=== PATIENT | female | born 1985 | race Caucasian/White ===

== ENCOUNTER 2017-02-13 20:35 | Emergency (ER) | payer OTHER ==
[2017-02-13] MEDS ORDERED: BENZONATATE 100 MG CAP PO STA (21:24)
[2017-02-13] MEDS ORDERED: IPRATROPIUM-ALBUTEROL 3 ML NEB INHALATION STA (21:24)
--- NOTE | 2017-02-13 21:32 | ED ---
URI HPI - General Chief Complaint: Upper Respiratory Infection Stated Complaint: URI Time Seen by Provider: 02/13/17 21:18 Source: patient, RN notes reviewed Mode of arrival: ambulatory Limitations: no limitations - History of Present Illness Initial Comments: 31-year-old female presents to the emergency department with a chief complaint of cough. Patient states that she was seen on Thursday for upper respiratory infection she was diagnosed with a bilateral ear infection and sent home on antibiotics and steroids. Patient states she continues to have this cough. Patient states that she continues to have sneezing she continues to have creams not. Patient states she's been sick for about 2 weeks now and she does not feel like she is getting any better. Patient denies any significant health history. Patient states that her cough seems to be the worst part. Patient states she does not smoke. Patient states she was concerned due to her continued symptoms so she thought that she should be evaluated.Patient denies any recent fever, chills, shortness of breath, chest pain, back pain, abdominal pain, nausea vomiting, numbness or tingling, dysuria or hematuria, constipation or diarrhea, headaches or visual changes, or any other current symptoms. - Related Data Previous Rx's Medication Instructions Recorded Albuterol Inhaler [Ventolin Hfa 1 - 2 puff INHALATION Q4-6H PRN #1 02/13/17 Inhaler] inhaler Benzonatate [Tessalon Perles] 100 mg PO TID #20 cap 02/13/17 Allergies Allergy/AdvReac Type Severity Reaction Status Date / Time No Known Allergies Allergy Verified 02/13/17 20:49 Review of Systems ROS Statement: Those systems with pertinent positive or pertinent negative responses have been documented in the HPI. ROS Other: All systems not noted in ROS Statement are negative. Past Medical History Past Medical History: No Reported History Additional Past Medical History / Comment(s): hx of kidney infection. History of Any Multi-Drug Resistant Organisms: None Reported Past Surgical History: Appendectomy Past Anesthesia/Blood Transfusion Reactions: Previous Problems w/ Anesthesia Additional Past Anesthesia/Blood Transfusion Reaction / Comment(s): extreme blood pressure drop with last epidural Past Psychological History: No Psychological Hx Reported Smoking Status: Never smoker Past Alcohol Use History: None Reported Past Drug Use History: None Reported - Past Family History Father Family Medical History: No Reported History General Exam - General Exam Comments Initial Comments: General exam: Alert, active, comfortable in no apparent distress Head: Normocephalic Eyes: Normal reaction of pupils, equal size, normal range of extraocular motion Ears: normal external ear canals, pink tympanic membranes with normal cone of light Nose: clear with pink turbinates Throat: no erythema or exudates with normal sized tonsils Neck: no masses, no nuchal rigidity Chest: no chest wall deformity Lungs: equal air entry with no crackles or wheeze CVS: S1 and S2 normal with no audible mumurs, regular rhythm Abdomen: no hepatosplenomegaly, normal bowel sounds, no guarding or rigidity Spine: no scoliosis or deformity Skin: no rashes Neurological: No focal deficits, tone is normal in all 4 extremities Limitations: no limitations Course Vital Signs 02/13/17 02/13/17 02/13/17 20:47 21:42 21:49 Temperature 97.2 F L Pulse Rate 81 80 80 Respiratory 20 Rate Blood Pressure 128/63 O2 Sat by Pulse 99 Oximetry Medical Decision Making - Medical Decision Making 31-year-old female presents to the emergency Department chief complaint of cough. Patient is currently on antibiotics and steroids. Patient examine does not show any acute findings. At this time chest x-ray is negative. This time patient did have some improvement with the breathing treatment and cough medication. This time we discussed we will start her onalbuterol inhaler for home as well as Tessalon Perles. We discussed close follow-up with her doctor. Patient stated that she understood the plan. All questions have been answered. She will be discharged. - Radiology Data Radiology results: report reviewed, image reviewed Disposition Clinical Impression: Upper respiratory infection Disposition: HOME SELF-CARE Condition: Stable Instructions: Upper Respiratory Infection (ED) Additional Instructions: Please use medication as discussed. Please follow up with family doctor if symptoms have not improved over the next two days. Please return to the emergency room if your symptoms increase or worsen or for any other concerns. Prescriptions: Albuterol Inhaler [Ventolin Hfa Inhaler] 1 - 2 puff INHALATION Q4-6H PRN #1 inhaler PRN Reason: Cough Benzonatate [Tessalon Perles] 100 mg PO TID #20 cap Referrals: Charo Santacruz DO [Primary Care Provider] - 1-2 days Time of Disposition: 21:53
--- NOTE | 2017-02-13 21:45 | XR ---
EXAMINATION TYPE: XR chest 2V DATE OF EXAM: 02/13/2017 9:32 PM COMPARISON: 02/05/2014. HISTORY: Cough and ear infection TECHNIQUE: Frontal and lateral views of the chest are obtained. FINDINGS: There is no focal air space opacity, pleural effusion, or pneumothorax seen. The cardiac silhouette size is within normal limits. The osseous structures are intact. IMPRESSION: No acute cardiopulmonary process.
[2017-02-13 22:25] VITALS: BP 118/57; PULSE 83; RESP 18; TEMP 97.1
== END 2017-02-13 22:25 | disposition home or self-care (01) ==
LOC: EC 20:35
DX: J06.9 Acute upper respiratory infection, unspecified (principal)
CPT/HCPCS: 71020; 94640; 99283

== ENCOUNTER → 2018-11-01 | Outpatient (CLI) | payer OTHER ==
--- NOTE | 2018-11-01 20:42 | ECHOF ---
Referral Reason:Palpitations R00.2 MEASUREMENTS -------- HEIGHT: 157.5 cm WEIGHT: 102.1 kg BP: RVIDd: 2.3 cm (< 3.3) IVSd: 0.8 cm (0.6 - 1.1) LVIDd: 4.3 cm (3.9 - 5.3) LVPWd: 1.1 cm (0.6 - 1.1) IVSs: 1.1 cm LVIDs: 2.7 cm LVPWs: 1.0 cm LA Diam: 3.3 cm (2.7 - 3.8) LAESV Index (A-L): 18.58 ml/m Ao Diam: 2.6 cm (2.0 - 3.7) AV Cusp: 1.8 cm (1.5 - 2.6) LA Diam: 3.1 cm (2.7 - 3.8) MV EXCURSION: 20.477 mm (> 18.000) MV EF SLOPE: 125 mm/s (70 - 150) EPSS: 0.4 cm MV E Sanjay: 0.62 m/s MV DecT: 272 ms MV A Sanjay: 0.52 m/s MV E/A Ratio: 1.20 RAP: 5.00 mmHg RVSP: 12.67 mmHg FINDINGS -------- Sinus rhythm. This was a technically good study. LV size, wall thickness and systolic function are normal, with an EF greater than 55%. The left alis tricular size is normal. The right ventricle is normal in size. The left atrial size is normal. The right atrial size is normal. There is mild aortic valve sclerosis. There is no evidence of aortic regurgitation. Mild mitral annular calcification present. Mild mitral regurgitation is present. Mild tricuspid regurgitation present. There is no evidence of pulmonary hypertension. The right v entricular systolic pressure, as measured by Doppler, is 12.67mmHg. There is no pulmonic regurgitation present. The aortic root size is normal. There is no pericardial effusion. CONCLUSIONS -------- 1. LV size, wall thickness and systolic function are normal, with an EF greater than 55%. 2. The left ventricular size is normal. 3. The right ventricle is normal in size. 4. The left atrial size is normal. 5. The right atrial size is normal. 6. There is mild aortic valve sclerosis. 7. Mild mitral annular calcification present. 8. Mild mitral regurgitation is present. 9. Mild tricuspid regurgitation present. 10. There is no evidence of pulmonary hypertension. 11. The right ventricular systolic pressure, as measured by Doppler, is 12.67mmHg. 12. There is no pulmonic regurgitation present. 13. The aortic root size is normal. 14. There is no pericardial effusion. WELL FLOW OPERATOR: Bianca Saldivar RDCS
--- NOTE | 2018-11-01 20:58 | EST ---
EXERCISE STRESS DATE OF SERVICE: 11/01/2018 AGE: 32 SEX: Female HT: 62" WT: 225 pounds PROTOCOL: Sidney STAGE: 3 DURATION OF EXERCISE: 8:15 minutes HEART RATE REST: 85 BLOOD PRESSURE REST: 112/70 MAXIMUM HEART RATE ACHIEVED: 169 MAXIMUM BLOOD PRESSURE: 132/57 85% MPHR: 162 100% MPHR: 190 METS: 9.9 INDICATIONS: Chest pain. RESULTS: Baseline EKG revealed normal sinus rhythm without significant ST-T changes. Patient walked on a standard Sidney protocol for 8 minutes 15 seconds achieved a maximal heart rate of 169 beats per minute which is well above 85% of predicted maximal. Patient developed some fatigue and shortness of breath but did not have any angina or arrhythmia. EKG did not reveal any ST-segment changes to indicate ischemia. By EKG criteria, this is a negative stress test with fair exercise capacity. The patient's peak blood pressure was 152/57. Peak heart rate was 169 beats per minute. There was no angina or arrhythmia. IMPRESSION: Fair exercise capacity with a negative stress test by EKG criteria. MMODL / IJN: [id number] /
== END | disposition home or self-care (01) ==
LOC: RADNMMAIN 10:14
PROVIDERS: ATTEND Family Medicine
DX: I08.3 Combined rheumatic disorders of mitral, aortic and tricuspid valves (principal); R00.2 Palpitations
CPT/HCPCS: 93017; 93306

== ENCOUNTER 2019-04-22 17:46 | Emergency (ER) | payer OTHER ==
[2019-04-22 18:21] VITALS: PULSE 76
[2019-04-22] MEDS ORDERED: diphenhydrAMINE 50 MG/ML 1 ML VIAL IVP STA (18:36)
[2019-04-22] MEDS ORDERED: METOCLOPRAMIDE 5 MG/ML 2 ML VIAL IVP STA (18:36)
[2019-04-22] MEDS ORDERED: KETOROLAC 30 MG/ML 1 ML VIAL IVP STA (18:36)
[2019-04-22] MEDS ORDERED: SODIUM CHLORIDE 0.9% 500 ML 500 ML IV STA (18:42)
--- NOTE | 2019-04-22 18:57 | ED ---
General Adult HPI - General Chief complaint: Headache Stated complaint: Headache, dental pain Time Seen by Provider: 04/22/19 18:28 Source: patient Mode of arrival: ambulatory Limitations: no limitations - History of Present Illness Initial comments: Patient is a 33-year-old female presenting to the emergency department with a chief complaint of headache and toothache. Patient reports a history of headaches but states this last one has not resolved in approximately a half months. Patient reports the headache is located in the right frontal region superior to the eye. Patient states the headache had a gradual onset with no resolution. Patient reports occasional tearing but no conjunctival injections. Patient reports nausea and several episodes of vomiting in the past 1-1/2 months. Patient denies light sensitivity. Patient reports the pain does not radiate anywhere rates it an 8 and throbbing. Patient reports taking Motrin without improvement. Patient denies blurry vision, one-sided numbness, tingling or muscle weakness. Patient also reports toothache around tooth #2 and states that is a possible abscess. Patient has an appointment scheduled with her dentist and was given Tylenol 3 for pain by the dentist. Patient reports a Tylenol 3 does not help alleviate the headache. - Related Data Home Medications Medication Instructions Recorded Confirmed Amoxicillin 500 mg PO Q12HR 02/13/17 02/13/17 predniSONE 50 mg PO DAILY 02/13/17 02/13/17 Previous Rx's Medication Instructions Recorded Albuterol Inhaler [Ventolin Hfa 1 - 2 puff INHALATION Q4-6H PRN #1 02/13/17 Inhaler] inhaler Benzonatate [Tessalon Perles] 100 mg PO TID #20 cap 02/13/17 Promethaz-Cod 6.25-10 mg/5 ml 5 ml PO Q4HR PRN #100 ml 02/13/17 [Phenergan with Codeine] Allergies Allergy/AdvReac Type Severity Reaction Status Date / Time No Known Allergies Allergy Verified 04/22/19 18:21 Review of Systems ROS Statement: Those systems with pertinent positive or pertinent negative responses have been documented in the HPI. ROS Other: All systems not noted in ROS Statement are negative. Past Medical History Past Medical History: No Reported History Additional Past Medical History / Comment(s): hx of kidney infection. History of Any Multi-Drug Resistant Organisms: None Reported Past Surgical History: Appendectomy Past Anesthesia/Blood Transfusion Reactions: Previous Problems w/ Anesthesia Additional Past Anesthesia/Blood Transfusion Reaction / Comment(s): extreme blood pressure drop with last epidural Past Psychological History: No Psychological Hx Reported Smoking Status: Never smoker Past Alcohol Use History: None Reported Past Drug Use History: None Reported - Past Family History Father Family Medical History: No Reported History General Exam Limitations: no limitations General appearance: alert, in no apparent distress Head exam: Present: atraumatic, normocephalic, normal inspection Eye exam: Present: normal appearance, PERRL, EOMI Pupils: Present: normal accommodation ENT exam: Present: normal exam, normal oropharynx (No discharge, swelling, erythema or abscess noted in the area of tenderness around tooth #2.), mucous membranes moist, TM's normal bilaterally, normal external ear exam Neck exam: Present: normal inspection, full ROM Respiratory exam: Present: normal lung sounds bilaterally Cardiovascular Exam: Present: regular rate, normal rhythm, normal heart sounds Extremities exam: Present: normal inspection, full ROM Back exam: Present: normal inspection, full ROM Neurological exam: Present: alert, oriented X3 Psychiatric exam: Present: normal affect, normal mood Skin exam: Present: warm, intact, normal color Course Vital Signs 04/22/19 18:19 Temperature 98.4 F Pulse Rate 76 Respiratory 18 Rate Blood Pressure 123/80 O2 Sat by Pulse 100 Oximetry Medical Decision Making - Medical Decision Making Patient is a 33-year-old female presents emergency Department with a chief complaint of headache and toothache. Distant history of physical examination the patient does not appear to have any dental inflammation or an abscess. Patient was given fluids, Benadryl, Toradol and Reglan. On reevaluation patient reports that she feels better. Patient does have a family history of aneurysms. CT of brain with contrast was obtained and is negative for any pathologies. Patient advised to follow up with neurology for further evaluation. Patient reports that she feels better and is ready to go home. Case discussed with physician. Disposition Clinical Impression: Headache Disposition: HOME SELF-CARE Condition: Stable Instructions (If sedation given, give patient instructions): Acute Headache (ED), Cluster Headache (ED) Additional Instructions: Please follow-up with neurology. Please return to emergency department if symptoms worsen. Is patient prescribed a controlled substance at d/c from ED?: No Referrals: Charo Santacruz DO [Primary Care Provider] - 1-2 days Nga Winter MD [REFERRING] - 1-2 days Time of Disposition: 21:33
[2019-04-22] MEDS ORDERED: RX INFO: IV CONTRAST WAS GIVEN 1 EACH MISC MISCELLANE PRN (20:11)
--- NOTE | 2019-04-22 20:47 | CT ---
EXAMINATION TYPE: CT brain w con DATE OF EXAM: 04/22/2019 COMPARISON: 08/27/2016 HISTORY: Headache. CT DLP: 1099.4 mGycm Automated exposure control for dose reduction was used. CONTRAST: Performed with IV Contrast, patient injected with 100ml mL of Isovue 300. FINDINGS: Ventricles have normal size. There is no mass effect nor midline shift. There is no sign of intracran ial hemorrhage. Calvarium is intact. There is no pathologic enhancement. IMPRESSION: NORMAL HEAD CT SCAN. NO ADVERSE CHANGE COMPARED TO OLD EXAM.
[2019-04-22 22:07] VITALS: BP 103/67; RESP 16; TEMP 98
== END 2019-04-22 22:05 | disposition home or self-care (01) ==
LOC: EC 17:46
DX: R51 Headache (principal); K08.89 Other specified disorders of teeth and supporting structures; H04.209 Unspecified epiphora, unspecified side; R11.2 Nausea with vomiting, unspecified; Z79.52 Long term (current) use of systemic steroids; Z82.0 Family history of epilepsy and other diseases of the nervous system
CPT/HCPCS: 70460; 99284; 96374; 96375 ×2; 96361 ×2; J1200; J2765; J1885; Q9967

== ENCOUNTER 2020-08-16 23:10 | Inpatient (IN) | payer OTHER ==
--- NOTE | 2020-08-16 23:18 | ED ---
Recheck HPI - General Stated Complaint: Covid positive SOB Time Seen by Provider: 08/16/20 23:14 Source: RN notes reviewed, old records reviewed Limitations: no limitations - History of Present Illness Initial Comments: this is a 34-year-old female DF for evaluation of persistent shortness of breath and weakness, patient has diminished appetite does not feel well with known diagnosis of coronavirus. No recent sick contacts or travel history she does have persistent fever no chest pain diffuse abdominal pain some nausea no vomiting or diarrhea, no significant medical history takes no medications MD Complaint: abnormal lab (positive for COVID) -: days(s) Returns Today for: persistent/worsening pain related to initial visit, other (SOB) Symptoms Since Prior Visit: fever (inc SOB) Context: other (not feeling well) Associated Symptoms: fever, chills, shortness of breath, malaise, abdominal pain - Related Data Home Medications Medication Instructions Recorded Confirmed Acetaminophen [Tylenol] 650 mg PO Q6H PRN 08/17/20 08/17/20 Naproxen Sodium [Aleve] 220 mg PO Q12H PRN 08/17/20 08/17/20 Vitamin C(Unknown Dose) 1 tab PO DAILY 08/17/20 08/17/20 Vitamin D3(Unknown Dose) 1 tab PO DAILY 08/17/20 08/17/20 Zinc 50 mg PO DAILY 08/17/20 08/17/20 Allergies Allergy/AdvReac Type Severity Reaction Status Date / Time No Known Allergies Allergy Verified 08/17/20 08:06 Review of Systems ROS Statement: Those systems with pertinent positive or pertinent negative responses have been documented in the HPI. ROS Other: All systems not noted in ROS Statement are negative. Past Medical History Past Medical History: No Reported History Additional Past Medical History / Comment(s): hx of kidney infection. History of Any Multi-Drug Resistant Organisms: None Reported Past Surgical History: Appendectomy Past Anesthesia/Blood Transfusion Reactions: Previous Problems w/ Anesthesia Additional Past Anesthesia/Blood Transfusion Reaction / Comment(s): extreme blood pressure drop with last epidural Past Psychological History: No Psychological Hx Reported Past Alcohol Use History: None Reported Past Drug Use History: None Reported - Past Family History Father Family Medical History: No Reported History General Exam General appearance: alert, in no apparent distress, anxious, lethargic Head exam: Present: atraumatic, normocephalic, normal inspection Eye exam: Present: normal appearance, PERRL, EOMI. Absent: scleral icterus, conjunctival injection, periorbital swelling ENT exam: Present: normal exam, mucous membranes moist Neck exam: Present: normal inspection. Absent: tenderness, meningismus, lymphadenopathy Respiratory exam: Present: normal lung sounds bilaterally. Absent: respiratory distress, wheezes, rales, rhonchi, stridor Cardiovascular Exam: Present: regular rate, normal rhythm, normal heart sounds. Absent: systolic murmur, diastolic murmur, rubs, gallop, clicks GI/Abdominal exam: Present: soft, normal bowel sounds. Absent: distended, tenderness, guarding, rebound, rigid Extremities exam: Present: normal inspection, full ROM, normal capillary refill. Absent: tenderness, pedal edema, joint swelling, calf tenderness Back exam: Present: normal inspection Neurological exam: Present: alert, oriented X3, CN II-XII intact Psychiatric exam: Present: normal affect, normal mood Skin exam: Present: warm, dry, intact, normal color. Absent: rash Course Vital Signs 08/16/20 08/16/20 08/16/20 23:21 23:25 23:26 Temperature 97.9 F Pulse Rate 96 Respiratory 24 24 Rate Blood Pressure 108/67 O2 Sat by Pulse 97 94 L Oximetry 08/17/20 08/17/20 08/17/20 00:30 01:15 02:00 Temperature 97.9 F Pulse Rate 66 65 Respiratory 17 18 Rate Blood Pressure 111/65 110/69 O2 Sat by Pulse 98 98 Oximetry - Reevaluation(s) Reevaluation #1: medical record is reviewed Patient informed of findings here in the ER, questions answered Patient is no significant current respiratory distress Medical Decision Making - Medical Decision Making 34 female DF for positive findings of coronavirus as well as pneumonia. Patient be admitted for cardiopulmonary evaluation monitoring of O2 - Lab Data Result diagrams: 08/16/20 23:45 08/16/20 23:45 Lab Results 08/16/20 08/16/20 08/16/20 Range/Units 23:45 23:45 23:45 WBC 3.6 L (3.8-10.6) k/uL RBC 4.92 (3.80-5.40) m/uL Hgb 13.7 (11.4-16.0) gm/dL Hct 41.0 (34.0-46.0) % MCV 83.3 (80.0-100.0) fL MCH 27.9 (25.0-35.0) pg MCHC 33.4 (31.0-37.0) g/dL RDW 13.9 (11.5-15.5) % Plt Count 115 L (150-450) k/uL Neutrophils % 64 % Lymphocytes % 28 % Monocytes % 5 % Eosinophils % 1 % Basophils % 1 % Neutrophils # 2.3 (1.3-7.7) k/uL Lymphocytes # 1.0 (1.0-4.8) k/uL Monocytes # 0.2 (0-1.0) k/uL Eosinophils # 0.0 (0-0.7) k/uL Basophils # 0.0 (0-0.2) k/uL PT 10.2 (9.0-12.0) sec INR 1.0 (<1.2) APTT 24.9 (22.0-30.0) sec Sodium 135 L (137-145) mmol/L Potassium 4.0 (3.5-5.1) mmol/L Chloride 105 (98-107) mmol/L Carbon Dioxide 23 (22-30) mmol/L Anion Gap 7 mmol/L BUN 8 (7-17) mg/dL Creatinine 0.63 (0.52-1.04) mg/dL Est GFR (CKD-EPI)AfAm >90 (>60 ml/min/1.73 sqM) Est GFR (CKD-EPI)NonAf >90 (>60 ml/min/1.73 sqM) Glucose 99 (74-99) mg/dL Plasma Lactic Acid Aristides (0.7-2.0) mmol/L Calcium 8.6 (8.4-10.2) mg/dL Magnesium 2.0 (1.6-2.3) mg/dL Ferritin 34.4 (10.0-291.0) ng/mL Total Bilirubin 0.5 (0.2-1.3) mg/dL AST 37 H (14-36) U/L ALT 21 (4-34) U/L Alkaline Phosphatase 93 (38-126) U/L Lactate Dehydrogenase 797 H (313-618) U/L C-Reactive Protein 27.8 H (<10.0) mg/L Total Protein 6.9 (6.3-8.2) g/dL Albumin 3.7 (3.5-5.0) g/dL Procalcitonin (0.02-0.09) ng/mL 08/16/20 08/16/20 Range/Units 23:45 23:45 WBC (3.8-10.6) k/uL RBC (3.80-5.40) m/uL Hgb (11.4-16.0) gm/dL Hct (34.0-46.0) % MCV (80.0-100.0) fL MCH (25.0-35.0) pg MCHC (31.0-37.0) g/dL RDW (11.5-15.5) % Plt Count (150-450) k/uL Neutrophils % % Lymphocytes % % Monocytes % % Eosinophils % % Basophils % % Neutrophils # (1.3-7.7) k/uL Lymphocytes # (1.0-4.8) k/uL Monocytes # (0-1.0) k/uL Eosinophils # (0-0.7) k/uL Basophils # (0-0.2) k/uL PT (9.0-12.0) sec INR (<1.2) APTT (22.0-30.0) sec Sodium (137-145) mmol/L Potassium (3.5-5.1) mmol/L Chloride (98-107) mmol/L Carbon Dioxide (22-30) mmol/L Anion Gap mmol/L BUN (7-17) mg/dL Creatinine (0.52-1.04) mg/dL Est GFR (CKD-EPI)AfAm (>60 ml/min/1.73 sqM) Est GFR (CKD-EPI)NonAf (>60 ml/min/1.73 sqM) Glucose (74-99) mg/dL Plasma Lactic Acid Aristides 0.7 (0.7-2.0) mmol/L Calcium (8.4-10.2) mg/dL Magnesium (1.6-2.3) mg/dL Ferritin (10.0-291.0) ng/mL Total Bilirubin (0.2-1.3) mg/dL AST (14-36) U/L ALT (4-34) U/L Alkaline Phosphatase (38-126) U/L Lactate Dehydrogenase (313-618) U/L C-Reactive Protein (<10.0) mg/L Total Protein (6.3-8.2) g/dL Albumin (3.5-5.0) g/dL Procalcitonin 0.04 (0.02-0.09) ng/mL - Radiology Data Radiology results: report reviewed (chest x-ray does show pneumonia), image reviewed Disposition Clinical Impression: COVID-19, Pneumonia, Community acquired pneumonia, Coronavirus infection Disposition: ADMITTED IP TO THIS HOSP Condition: Fair Is patient prescribed a controlled substance at d/c from ED?: No
[2020-08-16 23:59] LABS: Basophils % (A) 1 %; Eosinophils % (A) 1 %; HGB 13.7 gm/dL (11.4-16.0); Lymphocytes % (A) 28 %; MCH 27.9 pg (25.0-35.0); MCHC 33.4 g/dL (31.0-37.0); MCV 83.3 fL (80.0-100.0); Monocytes # (A) 0.2 k/uL (0-1.0); Monocytes % (A) 5 %; Neutrophils # (A) 2.3 k/uL (1.3-7.7); Neutrophils % (A) 64 %; Platelet Count 115 k/uL (150-450); RBC 4.92 m/uL (3.80-5.40); RDW 13.9 % (11.5-15.5); WBC 3.6 k/uL (3.8-10.6)
--- NOTE | 2020-08-17 00:03 | XR ---
EXAMINATION TYPE: XR chest 1V portable DATE OF EXAM: 08/16/2020 COMPARISON: 02/13/2017 HISTORY: Cough TECHNIQUE: FINDINGS: There is probably some minimal infiltrate right lower lobe below the right pulmonary hilum. There is no heart failure. Heart size is normal. There is no pleural effusion. There are chest leads . Bony thorax is intact. IMPRESSION: There is probably some minimal infiltrate on the right side that is a change compared to old exam. Normal heart.
[2020-08-17 00:10] LABS: ALT 21 U/L (4-34); AST 37 U/L (14-36); African American GFR (CKD) >90 (>60 ml/min/1.73 sqM); Albumin 3.7 g/dL (3.5-5.0); Alkaline Phosphatase 93 U/L (38-126); Anion Gap 7 mmol/L; Blood Urea Nitrogen 8 mg/dL (7-17); C Reactive Protein 27.8 mg/L (<10.0); Calcium 8.6 mg/dL (8.4-10.2); Carbon Dioxide 23 mmol/L (22-30); Chloride 105 mmol/L (98-107); Glucose 99 mg/dL (74-99); LDH 797 U/L (313-618); Non-African American GFR(CKD) >90 (>60 ml/min/1.73 sqM); Sodium 135 mmol/L (137-145); Total Bilirubin 0.5 mg/dL (0.2-1.3); Total Protein 6.9 g/dL (6.3-8.2)
[2020-08-17 00:17] LABS: Partial Thromboplastin Time 24.9 sec (22.0-30.0); Prothrombin Time 10.2 sec (9.0-12.0)
[2020-08-17] MEDS ORDERED: PNEUMONIA PROTOCOL UTILIZED 1 EACH MISC PO PRN (00:40)
[2020-08-17] MEDS ORDERED: IPRATROPIUM-ALBUTEROL 3 ML NEB INHALATION PRN (00:40)
[2020-08-17] MEDS ORDERED: AZITHROMYCIN 500 MG in SODIUM CHLORIDE 0.9% 250 ML IVPB ONE (01:00)
[2020-08-17] MEDS: SODIUM CHLORIDE 0.9% 1,000 ML IV SCH ×3 (01:32→20:26)
[2020-08-17] MEDS: ENOXAPARIN 40 MG/0.4 ML SYRINGE SQ SCH (07:10)
[2020-08-17] MEDS: TIOTROPIUM 18 MCG/PUFF INHALER INHALATION SCH (08:00)
[2020-08-17 09:54] LABS: Ferritin 34.4 ng/mL (10.0-291.0)
[2020-08-17] MEDS: ALBUTEROL HFA INHALER INHALATION PRN ×3 (10:59→20:43)
[2020-08-17] MEDS: ZINC SULFATE 220 MG CAP PO SCH (11:51)
[2020-08-17] MEDS: ASCORBIC ACID 500 MG TAB PO SCH (11:51)
[2020-08-17] MEDS: FAMOTIDINE 20 MG TAB PO SCH ×2 (11:51→20:26)
[2020-08-17] MEDS: dexAMETHasone 2 MG TAB PO SCH (11:52)
[2020-08-17 13:01] LABS: D-Dimer 0.44 mg/L FEU (<0.60)
--- NOTE | 2020-08-17 14:09 | P.CNPUL ---
History of Present Illness Consult date: 08/17/20 Requesting physician: Cristina Carpio Reason for consult: dyspnea Chief complaint: Covid 19, shortness of breath History of present illness: This is a 34-year-old white female patient with no significant medical history and prior history of appendectomy, nonsmoker who presented to the hospital in with complaints of increasing shortness of breath, body aches. Patient has a sister who was hospitalized for Covid 19 related to pneumonia, he also has a mother who tested positive for Covid 19 and is also hospitalized in this hospital right now. Her onset of symptoms was on Thursday, 5 days ago. Started with body aches, patient now has developed increasing shortness of breath. Patient has been afebrile while in the hospital, room air pulse ox is 98%, she is very short of breath with any exertion. She was tested on outpatient basis for Covid 19, repeat PCR is pending at this time, lab work showed white blood cell, 3.6, platelet count of 1:15, lymphocyte count is 1.0, d-dimer 0.44, fibrinogen is 378, sodium is 135, the rest of the electrolytes and renal profile were within normal limits, lactic acid was 0.7, AST was 37, LDH 797, CRP is 27.8, pro-calcitonin is negative at 0.04. Chest x-ray shows probable minimal infiltrate on the right side. Review of Systems All systems: negative Constitutional: Denies chills, Denies fever Eyes: denies blurred vision, denies pain Ears, nose, mouth and throat: Denies headache, Denies sore throat Cardiovascular: Denies chest pain, Denies shortness of breath Respiratory: Reports dyspnea, Denies cough Gastrointestinal: Denies abdominal pain, Denies diarrhea, Denies nausea, Denies vomiting Genitourinary: Denies dysuria, Denies hematuria Musculoskeletal: Denies myalgias Integumentary: Denies pruritus, Denies rash Neurological: Denies numbness, Denies weakness Psychiatric: Denies anxiety, Denies depression Endocrine: Denies fatigue, Denies weight change Past Medical History Past Medical History: No Reported History Additional Past Medical History / Comment(s): hx of kidney infection. History of Any Multi-Drug Resistant Organisms: None Reported Past Surgical History: Appendectomy Additional Past Surgical History / Comment(s): appy at 14 yo Past Anesthesia/Blood Transfusion Reactions: Previous Problems w/ Anesthesia Additional Past Anesthesia/Blood Transfusion Reaction / Comment(s): extreme bloo d pressure drop with last epidural Past Psychological History: No Psychological Hx Reported Smoking Status: Never smoker Past Alcohol Use History: None Reported Past Drug Use History: None Reported - Past Family History Father Family Medical History: No Reported History Medications and Allergies Home Medications Medication Instructions Recorded Confirmed Type Acetaminophen [Tylenol] 650 mg PO Q6H PRN 08/17/20 08/17/20 History Naproxen Sodium [Aleve] 220 mg PO Q12H PRN 08/17/20 08/17/20 History Vitamin C(Unknown Dose) 1 tab PO DAILY 08/17/20 08/17/20 History Vitamin D3(Unknown Dose) 1 tab PO DAILY 08/17/20 08/17/20 History Zinc 50 mg PO DAILY 08/17/20 08/17/20 History Allergies Allergy/AdvReac Type Severity Reaction Status Date / Time No Known Allergies Allergy Verified 08/17/20 08:06 Physical Exam Vitals: Vital Signs Temp Pulse Pulse Resp BP BP Pulse Ox 08/17/20 07:00 99.0 F 73 18 103/70 97 08/17/20 04:57 77 08/17/20 04:03 98.1 F 77 14 111/73 98 08/17/20 03:57 67 17 111/57 97 08/17/20 02:00 97.9 F 08/17/20 01:15 65 18 110/69 98 08/17/20 00:30 66 17 111/65 98 08/16/20 23:26 24 08/16/20 23:25 94 L 08/16/20 23:21 97.9 F 96 24 108/67 97 Intake and Output 08/16/20 08/17/20 08/17/20 22:59 06:59 14:59 Intake Total 200 Balance 200 Intake: Intake, IV Titration 100 Amount Sodium Chloride 0.9% 1, 100 000 ml @ 100 mls/hr IV . Q10H [facility] Rx#:[id number] Oral 100 Other: # Voids 1 Weight 99.79 kg GENERAL EXAM: Alert, very pleasant, 34-year-old white female on comfortable in no apparent distress. HEAD: Normocephalic/atraumatic. EYES: Normal reaction of pupils, equal size. Conjunctiva pink, sclera white. NOSE: Clear with pink turbinates. THROAT: No erythema or exudates. NECK: No masses, no JVD, no thyroid enlargement, no adenopathy. CHEST: No chest wall deformity. Symmetrical expansion. LUNGS: Equal air entry with no crackles, wheeze, rhonchi or dullness. CVS: Regular rate and rhythm, normal S1 and S2, no gallops, no murmurs, no rubs ABDOMEN: Soft, nontender. No hepatosplenomegaly, normal bowel sounds, no guarding or rigidity. EXTREMITIES: No clubbing, no edema, no cyanosis, 2+ pulses and upper and lower extremities. MUSCULOSKELETAL: Muscle strength and tone normal. SPINE: No scoliosis or deformity SKIN: No rashes CENTRAL NERVOUS SYSTEM: Alert and oriented -3. No focal deficits, tone is normal in all 4 extremities. PSYCHIATRIC: Alert and oriented -3. Appropriate affect. Intact judgment and insight. Results - Laboratory Findings CBC and BMP: 08/16/20 23:45 08/16/20 23:45 PT/INR, D-dimer PT 10.2 sec (9.0-12.0) 08/16/20 23:45 INR 1.0 (<1.2) 08/16/20 23:45 D-Dimer 0.44 mg/L FEU (<0.60) 08/17/20 11:45 Abnormal lab findings: Abnormal Labs 08/16/20 08/16/20 23:45 23:45 WBC 3.6 L Plt Count 115 L Sodium 135 L AST 37 H Lactate Dehydrogenase 797 H C-Reactive Protein 27.8 H - Diagnostic Findings Chest x-ray: report reviewed, image reviewed Assessment and Plan Plan: Assessment: #1. Acute Covid 19 related pneumonia #2. Dyspnea, body aches related to the above #3. Increased inflammatory markers including LDH and CRP Plan: We'll add Decadron, Pepcid, Lovenox, we'll order inflammatory markers, no need for antibiotics, monitor her fever pattern, oxygenation pattern, repeat Covid 19 PCR is pending, chest x-ray has been reviewed, maintained droplet precautions, will continue to follow I performed a history & physical examination of the patient and discussed their management with my nurse practitioner, Taryn Jenkins. I reviewed the nurse practitioner's note and agree with the documented findings and plan of care. Lung sounds are positive for diminished breath sounds. The findings and the impression was discussed with the patient. I attest to the documentation by the nurse practitioner. Time with Patient: Greater than 30
[2020-08-17] MEDS ORDERED: ONDANSETRON 4 MG/2 ML VIAL IVP PRN (15:10)
[2020-08-17] MEDS ORDERED: MELATONIN 5 MG TABLET PO SCH (21:00)
[2020-08-17] MEDS ORDERED: MELATONIN 1 MG TAB PO SCH (21:00)
--- NOTE | 2020-08-17 23:00 | P.HPIM ---
History of Present Illness H&P Date: 08/17/20 Chief Complaint: SOB Patient is a 34-year-old female with no significant past medical history except appendectomy presents to ER with complaints of generalized body aches myalgias and shortness of breath. Patient has been having elbow symptoms started since Thursday and was tested positive for COVID-19 on Thursday. Patient sister was hospitalized for pneumonia and her mother is also tested positive for COVID-19. Patient has been having generalized weakness and body aches as well as nausea and vomiting. Due to worsening shortness of work patient presents to ER. Currently patient is saturating well on room air. Still having nausea and episodes of vomiting. No fever currently no chills. Chest x-ray showed there is probably some minimal infiltrate on the right side that is a change compared to old exam. Laboratory data showed WBC 3.6, platelets 115, D-dimer 0.44, ferritin 34.4, LDH 797 and CRP 27.8 and prolactin 0.04 Review of Systems Constitutional: Patient denies any fever or chills . + generalized weakness and myalgias. Abdomen: Patient does have nausea vomiting. no diarrhea and abdominal pain. Cardiovascular: Patient denies any chest pain or short of breath no palpitations. Respiratory: patient denied any cough or sputum production. No shortness of breath Neurologic: Patient denied any numbness or tingling headache. Musculoskeletal: Patient denies any complaints of joint swelling or deformity. Skin: Negative Psychiatric: Negative Endocrine: No heat or cold intolerance. No recent weight gain. Genitourinary: No dysuria or hematuria. All other 14 point ROS negative except the above Past Medical History Past Medical History: No Reported History Additional Past Medical History / Comment(s): hx of kidney infection. History of Any Multi-Drug Resistant Organisms: None Reported Past Surgical History: Appendectomy Additional Past Surgical History / Comment(s): appy at 14 yo Past Anesthesia/Blood Transfusion Reactions: Previous Problems w/ Anesthesia Additional Past Anesthesia/Blood Transfusion Reaction / Comment(s): extreme blood pressure drop with last epidural Past Psychological History: No Psychological Hx Reported Smoking Status: Never smoker Past Alcohol Use History: None Reported Past Drug Use History: None Reported - Past Family History Father Family Medical History: No Reported History Medications and Allergies Home Medications Medication Instructions Recorded Confirmed Type Acetaminophen [Tylenol] 650 mg PO Q6H PRN 08/17/20 08/17/20 History Naproxen Sodium [Aleve] 220 mg PO Q12H PRN 08/17/20 08/17/20 History Vitamin C(Unknown Dose) 1 tab PO DAILY 08/17/20 08/17/20 History Vitamin D3(Unknown Dose) 1 tab PO DAILY 08/17/20 08/17/20 History Zinc 50 mg PO DAILY 08/17/20 08/17/20 History Allergies Allergy/AdvReac Type Severity Reaction Status Date / Time No Known Allergies Allergy Verified 08/17/20 08:06 Physical Exam Vitals: Vital Signs Temp Pulse Pulse Resp BP BP Pulse Ox 08/17/20 07:00 99.0 F 73 18 103/70 97 08/17/20 04:57 77 08/17/20 04:03 98.1 F 77 14 111/73 98 08/17/20 03:57 67 17 111/57 97 08/17/20 02:00 97.9 F 08/17/20 01:15 65 18 110/69 98 08/17/20 00:30 66 17 111/65 98 08/16/20 23:26 24 08/16/20 23:25 94 L 08/16/20 23:21 97.9 F 96 24 108/67 97 Intake and Output 08/16/20 08/17/20 08/17/20 22:59 06:59 14:59 Intake Total 200 Balance 200 Intake: Intake, IV Titration 100 Amount Sodium Chloride 0.9% 1, 100 000 ml @ 100 mls/hr IV . Q10H [facility] Rx#:[id number] Oral 100 Other: # Voids 1 Weight 99.79 kg PHYSICAL EXAMINATION: Patient is lying in the bed comfortably, no acute distress, awake alert and oriented.. HEENT: Normocephalic. Neck is supple. Pupils reactive. Nostrils clear. Oral cavity is moist. Ears reveal no drainage. Neck reveals no JVD, carotid bruits, or thyromegaly. CHEST EXAMINATION: Trachea is central. Symmetrical expansion. Lung ruiz clear to auscultation and percussion. CARDIAC: Normal S1, S2 with no gallops. No murmurs ABDOMEN: Soft. Bowel sounds normal. No organomegaly. No abdominal bruits. Extremities: reveal no edema. No clubbing or cyanosis Neurologically awake, alert, oriented x3 with well-coordinated movements. No focal deficits noted Skin: No rash or skin lesions. Psychiatric: Coperative. Nonsuicidal Musculoskeletal: No joint swelling or deformity. Normal range of motion. Results CBC & Chem 7: 08/16/20 23:45 08/16/20 23:45 Labs: Abnormal Lab Results - Last 24 Hours (Table) 08/16/20 08/16/20 Range/Units 23:45 23:45 WBC 3.6 L (3.8-10.6) k/uL Plt Count 115 L (150-450) k/uL Sodium 135 L (137-145) mmol/L AST 37 H (14-36) U/L Lactate Dehydrogenase 797 H (313-618) U/L C-Reactive Protein 27.8 H (<10.0) mg/L Thrombosis Risk Factor Assmnt - DVT/VTE Prophylaxis DVT/VTE Prophylaxis: Pharmacologic Prophylaxis ordered - Choose All That Apply Any of the Below Risk Factors Present?: No Other Risk Factors: No Other congenital or acquired thrombophilia - If yes, enter type in comment: No Thrombosis Risk Factor Assessment Level: Very Low Risk Assessment and Plan Assessment: Acute COVID-19 viral infection Nausea vomiting, generalized myalgias and shortness of breath secondary to above. History of appendectomy Morbid obesity BMI 40.2 DVT prophylaxis subcu Lovenox. Plan: Patient will be continued on IV hydration and oxygen therapy as needed. Was started on Lovenox and Decadron. Pulmonary is following. Repeat COVID-19 PCR is pending. Continue with droplet and contact precautions. Further recommendations based on clinical course. Time with Patient: Greater than 30
[2020-08-18] MEDS: SODIUM CHLORIDE 0.9% 1,000 ML IV SCH (04:22)
[2020-08-18 04:24] VITALS: BP 123/76
[2020-08-18 06:42] LABS: Basophils % (A) 0 %; Eosinophils % (A) 0 %; HCT 39.4 % (34.0-46.0); HGB 12.3 gm/dL (11.4-16.0); Lymphocytes # (A) 0.8 k/uL (1.0-4.8); Lymphocytes % (A) 27 %; MCH 26.2 pg (25.0-35.0); MCHC 31.2 g/dL (31.0-37.0); MCV 83.9 fL (80.0-100.0); Mean Platelet Volume 11.4; Monocytes # (A) 0.1 k/uL (0-1.0); Monocytes % (A) 4 %; Neutrophils # (A) 2.1 k/uL (1.3-7.7); Neutrophils % (A) 67 %; Platelet Count 113 k/uL (150-450); RBC 4.69 m/uL (3.80-5.40); RDW 14.1 % (11.5-15.5); WBC 3.1 k/uL (3.8-10.6)
[2020-08-18 06:59] LABS: D-Dimer 0.43 mg/L FEU (<0.60)
[2020-08-18] MEDS: FAMOTIDINE 20 MG TAB PO SCH (07:06)
[2020-08-18] MEDS: ZINC SULFATE 220 MG CAP PO SCH (07:06)
[2020-08-18] MEDS: ASCORBIC ACID 500 MG TAB PO SCH (07:06)
[2020-08-18] MEDS: ENOXAPARIN 40 MG/0.4 ML SYRINGE SQ SCH (07:07)
[2020-08-18] MEDS: dexAMETHasone 2 MG TAB PO SCH (07:07)
[2020-08-18 08:41] VITALS: PULSE 71; RESP 17; TEMP 98.2
--- NOTE | 2020-08-18 08:47 | XR ---
EXAMINATION TYPE: XR chest 1V portable DATE OF EXAM: 08/18/2020 CLINICAL HISTORY: Difficulty breathing progress study. covid positive. TECHNIQUE: Single AP portable upright view of the chest is obtained. COMPARISON: Chest x-ray from 2 days earlier. FINDINGS: Improved aeration right lung base. Persistent low lung volumes. Patchy left basilar opacit y. Cardiac silhouette size is stable and within normal limits. Osseous structures are intact. IMPRESSION: Improved aeration right lung base. Low lung volumes with patchy left basilar acute atelec tasis and/or infiltrate noted.
[2020-08-18 08:48] LABS: ALT 19 U/L (4-34); AST 28 U/L (14-36); African American GFR (CKD) >90 (>60 ml/min/1.73 sqM); Albumin 3.2 g/dL (3.5-5.0); Albumin/Globulin Ratio 1.1; Alkaline Phosphatase 86 U/L (38-126); Anion Gap 6 mmol/L; Blood Urea Nitrogen 7 mg/dL (7-17); C Reactive Protein 28.6 mg/L (<10.0); Calcium 8.3 mg/dL (8.4-10.2); Carbon Dioxide 23 mmol/L (22-30); Chloride 111 mmol/L (98-107); Globulin 2.9 g/dL; Glucose 97 mg/dL (74-99); Non-African American GFR(CKD) >90 (>60 ml/min/1.73 sqM); Potassium 4.3 mmol/L (3.5-5.1); Sodium 140 mmol/L (137-145); Total Bilirubin 0.2 mg/dL (0.2-1.3); Total Protein 6.1 g/dL (6.3-8.2)
[2020-08-18] MEDS ORDERED: AZITHROMYCIN 500 MG TAB PO SCH (09:00)
[2020-08-18] MEDS: TIOTROPIUM 18 MCG/PUFF INHALER INHALATION SCH (09:39)
--- NOTE | 2020-08-18 12:00 | P.PN ---
Subjective Progress Note Date: 08/18/20 Principal diagnosis: Covid 19 pneumonitis This is a 34-year-old white female patient with no significant medical history and prior history of appendectomy, nonsmoker who presented to the hospital in 08/16/2020 with complaints of increasing shortness of breath, body aches. Zo cormier has a sister who was hospitalized for Covid 19 related to pneumonia, he also has a mother who tested positive for Covid 19 and is also hospitalized in this hospital right now. Her onset of symptoms was on Thursday, 5 days ago. Started with body aches, patient now has developed increasing shortness of breath. Patient has been afebrile while in the hospital, room air pulse ox is 98%, she is very short of breath with any exertion. She was tested on outpatient basis for Covid 19, repeat PCR is pending at this time, lab work showed white blood cell, 3.6, platelet count of 1:15, lymphocyte count is 1.0, d-dimer 0.44, fibrinogen is 378, sodium is 135, the rest of the electrolytes and renal profile were within normal limits, lactic acid was 0.7, AST was 37, LDH 797, CRP is 27.8, pro-calcitonin is negative at 0.04. Chest x-ray shows probable minimal infiltrate on the right side. The patient is seen today 08/18/2020 in follow-up on the regular medical floor. She is sitting up in bed. Awake and alert in no acute distress. No worsening shortness of breath, cough or congestion. She's afebrile. Hemodynamically stable. Maintaining O2 saturations the mid 90s on room air. White count 3.1. Hemoglobin 12.3. Lymphocytes 0.8. D-dimer 0.43. Sodium 140. Potassium 4.3. Creatinine 0.59. She remains on Decadron, Lovenox, zinc, vitamin C, melatonin, Pepcid. Chest x-ray shows improved aeration in the right lung base. Patchy infiltrate left base Objective - Vital Signs Vital signs: Vital Signs Temp 98.2 F 08/18/20 07:25 Pulse 71 08/18/20 07:25 Resp 17 08/18/20 07:25 BP 123/76 08/18/20 07:25 Pulse Ox 95 08/18/20 07:25 Intake & Output 08/17/20 08/18/2008/18/20 18:59 06:59 18:59 Intake Total 200 Balance 200 Intake: Oral 200 Other: Voiding Method Toilet Toilet # Voids 3 1 - Exam GENERAL EXAM: Alert, active, pleasant 34-year-old female patient, on room air, comfortable in no apparent distress. HEAD: Normocephalic. EYES: Normal reaction of pupils, equal size. NOSE: Clear with pink turbinates. THROAT: No erythema or exudates. NECK: No masses, no JVD. CHEST: No chest wall deformity. LUNGS: Equal air entry with few scattered rhonchi. CVS: S1 and S2 normal with no audible murmur, regular rhythm. ABDOMEN: No hepatosplenomegaly, normal bowel sounds, no guarding or rigidity. SPINE: No scoliosis or deformity SKIN: No rashes CENTRAL NERVOUS SYSTEM: No focal deficits, tone is normal in all 4 extremities. EXTREMITIES: There is no peripheral edema. No clubbing, no cyanosis. Peripheral pulses are intact. - Labs CBC & Chem 7: 08/18/20 06:27 08/18/20 06:27 Labs: Abnormal Lab Results - Last 24 Hours (Table) 08/18/20 08/18/20 Range/Units 06:27 06:27 WBC 3.1 L (3.8-10.6) k/uL Plt Count 113 L (150-450) k/uL Lymphocytes # 0.8 L (1.0-4.8) k/uL Chloride 111 H (98-107) mmol/L Calcium 8.3 L (8.4-10.2) mg/dL C-Reactive Protein 28.6 H (<10.0) mg/L Total Protein 6.1 L (6.3-8.2) g/dL Albumin 3.2 L (3.5-5.0) g/dL Microbiology - Last 24 Hours (Table) 08/16/20 23:45 Blood Culture Gram Stain - Preliminary Blood Blood Culture - Preliminary Bacillus species Not Anthracis 08/16/20 23:45 Blood Culture - Final Blood Assessment and Plan Assessment: #1. Acute Covid 19 related pneumonia #2. Dyspnea, body aches related to the above #3. Increased inflammatory markers including LDH and CRP #4. Obesity, BMI 40 Plan: The patient was seen and evaluated by Dr. Artinian Chest x-ray and labs reviewed She can be been discharged home from the pulmonary standpoint Complete 10 days of Decadron Continue home isolation Follow-up with her PCP I, the cosigning physician, performed a history & physical examination of the patient. Lungs sounds with few scattered rhonchi. Maintaining good O2 saturations in the 90s on room air. I discussed the assessment and plan of care with my nurse practitioner, Genesis Rodas. I attest to the above note as dictated by her.
[2020-08-18 17:26] LABS: Ferritin 35.3 ng/mL (10.0-291.0)
--- NOTE | 2020-09-02 23:44 | P.DS ---
Providers Date of admission: 08/17/20 00:42 Expected date of discharge: 08/18/20 Attending physician: Cristina Carpio Consults: 08/17/20 00:40 Consult Physician Routine Consulting Provider: Frederick Camarillo Consult Reason/Comments: covid Do you want consulting provider notified?: Yes 08/17/20 00:41 Consult Physician Routine Consulting Provider: Andrea Cardenas Consult Reason/Comments: covid Do you want consulting provider notified?: Yes Primary care physician: Charo Santacruz Hospital Course: Discharge diagnosis Acute COVID-19 viral infection Nausea vomiting, generalized myalgias and shortness of breath secondary to above. History of appendectomy Morbid obesity BMI 40.2 DVT prophylaxis subcu Lovenox. Hospital course Patient is a 34-year-old female with no significant past medical history except appendectomy presents to ER with complaints of generalized body aches myalgias and shortness of breath. Patient has been having elbow symptoms started since Thursday and was tested positive for COVID-19 on Thursday. Patient sister was hospitalized for pneumonia and her mother is also tested positive for COVID-19. Patient has been having generalized weakness and body aches as well as nausea and vomiting. Due to worsening shortness of work patient presents to ER. Currently patient is saturating well on room air. Still having nausea and episodes of vomiting. No fever currently no chills. Chest x-ray showed there is probably some minimal infiltrate on the right side that is a change compared to old exam. Laboratory data showed WBC 3.6, platelets 115, D-dimer 0.44, ferritin 34.4, LDH 797 and CRP 27.8 and prolactin 0.04 Patient was continued on IV hydration and oxygen therapy as needed. Was started on Lovenox and Decadron. Repeat COVID-19 PCR is pending. Continue with droplet and contact precautions. Patient was seen by pulmonary. 08/18/2020 Patient is currently lying in the bed comfortably. Awake alert aware x3. Saturating well on room air. Hemodynamically stable. Laboratory data showed WBC 3.1, lymphocytes 0.8 and D-dimer 0.43 Patient was continued on Decadron Lovenox zinc vitamin C, melatonin and Pepcid. Chest x-ray showed improved aeration in the lung bases. Patchy infiltrate left base. Patient did improve symptomatically with nausea vomiting improved as well. Patient wishes to be discharged home today. PHYSICAL EXAMINATION: Patient is lying in the bed comfortably, no acute distress, awake alert and oriented.. HEENT: Normocephalic. Neck is supple. Pupils reactive. Nostrils clear. Oral cavity is moist. Ears reveal no drainage. Neck reveals no JVD, carotid bruits, or thyromegaly. CHEST EXAMINATION: Trachea is central. Symmetrical expansion. Lung ruiz clear to auscultation and percussion. CARDIAC: Normal S1, S2 with no gallops. No murmurs ABDOMEN: Soft. Bowel sounds normal. No organomegaly. No abdominal bruits. Extremities: reveal no edema. No clubbing or cyanosis Neurologically awake, alert, oriented x3 with well-coordinated movements. No focal deficits noted Skin: No rash or skin lesions. Psychiatric: Coperative. Nonsuicidal Musculoskeletal: No joint swelling or deformity. Normal range of motion. Vital Signs Temp 98.2 F 08/18/20 07:25 Pulse 71 08/18/20 07:25 Resp 17 08/18/20 07:25 BP 123/76 08/18/20 07:25 Pulse Ox 95 08/18/20 07:25 Intake & Output 08/17/20 08/18/20 08/18/20 18:59 06:59 18:59 Intake Total 200 Balance 200 Intake: Oral 200 Other: Voiding Method Toilet Toilet # Voids 3 1 Patient Condition at Discharge: Fair Plan - Discharge Summary Discharge Rx Participant: Yes New Discharge Prescriptions: New Ondansetron Odt [Zofran Odt] 4 mg PO Q8HR PRN #12 tab PRN Reason: Nausea dexAMETHasone [Hexadrol] 6 mg PO DAILY 8 Days #24 tab Famotidine [Pepcid] 20 mg PO BID 14 Days #28 tab Continue Zinc 50 mg PO DAILY Naproxen Sodium [Aleve] 220 mg PO Q12H PRN PRN Reason: Fever And/ Or Pain Acetaminophen [Tylenol] 650 mg PO Q6H PRN PRN Reason: Fever Vitamin D3(Unknown Dose) 1 tab PO DAILY Vitamin C(Unknown Dose) 1 tab PO DAILY Discharge Medication List Acetaminophen [Tylenol] 650 mg PO Q6H PRN 08/17/20 [History] Naproxen Sodium [Aleve] 220 mg PO Q12H PRN 08/17/20 [History] Vitamin C(Unknown Dose) 1 tab PO DAILY 08/17/20 [History] Vitamin D3(Unknown Dose) 1 tab PO DAILY 08/17/20 [History] Zinc 50 mg PO DAILY 08/17/20 [History] Famotidine [Pepcid] 20 mg PO BID 14 Days #28 tab 08/18/20 [Rx] Ondansetron Odt [Zofran Odt] 4 mg PO Q8HR PRN #12 tab 08/18/20 [Rx] dexAMETHasone [Hexadrol] 6 mg PO DAILY 8 Days #24 tab 08/18/20 [Rx] Follow up Appointment(s)/Referral(s): Charo Santacruz DO [Primary Care Provider] - 1-2 days Discharge Disposition: HOME SELF-CARE
== END 2020-08-18 15:41 | disposition home or self-care (01) | DRG 177 ==
LOC: EC 23:10 → 4SSUR 08-17 00:42
PROVIDERS: ADMIT Hospitalist; ATTEND Hospitalist
DX: U07.1 COVID-19 (principal); J12.89 Other viral pneumonia; Z68.41 Body mass index [BMI] 40.0-44.9, adult; E66.01 Morbid (severe) obesity due to excess calories; Z79.899 Other long term (current) drug therapy; Z90.49 Acquired absence of other specified parts of digestive tract; Z87.440 Personal history of urinary (tract) infections; Z87.19 Personal history of other diseases of the digestive system; Z98.890 Other specified postprocedural states
CPT/HCPCS: 36415; 71045; 80053; 82728; 83605; 83615; 83735; 84145; 85025; 85379; 85384; 85610; 85730; 86140; 87040; 93005; 94640; 96365; 96367; 99285

== ENCOUNTER 2020-08-21 07:47 | Emergency (ER) | payer OTHER ==
[2020-08-21] MEDS ORDERED: ACETAMINOPHEN TAB 500 MG TAB PO STA (08:12)
--- NOTE | 2020-08-21 08:20 | ED ---
General Adult HPI - General Chief complaint: Shortness of Breath Stated complaint: COVID+ Time Seen by Provider: 08/21/20 07:55 Source: patient, RN notes reviewed, old records reviewed Mode of arrival: ambulatory Limitations: no limitations - History of Present Illness Initial comments: This is a 34-year-old female presents emergency department stating that she has been tested positive for cold last week is been on steroids since. Patient states she started becoming short of breath on Thursday in the symptoms worsen so she's decided come to the emergency department. Patient denies any chest pain. Patient denies any abdominal pain. Denies any vomiting or diarrhea but states she is mildly nauseous. Patient states that she has not noted any fever but she also is taking Tylenol [id number] she has yet to take any Tylenol today. Patient denies any lightheadedness or dizziness. Patient denies headache patient denies numbness weakness. - Related Data Home Medications Medication Instructions Recorded Confirmed Acetaminophen [Tylenol] 650 mg PO Q6H PRN 08/17/20 08/21/20 Naproxen Sodium [Aleve] 220 mg PO Q12H PRN 08/17/20 08/21/20 Vitamin C(Unknown Dose) 1 tab PO DAILY 08/17/20 08/21/20 Vitamin D3(Unknown Dose) 1 tab PO DAILY 08/17/20 08/21/20 Zinc 50 mg PO DAILY 08/17/20 08/21/20 Previous Rx's Medication Instructions Recorded Famotidine [Pepcid] 20 mg PO BID 14 Days #28 tab 08/18/20 Ondansetron Odt [Zofran Odt] 4 mg PO Q8HR PRN #12 tab 08/18/20 dexAMETHasone [Hexadrol] 6 mg PO DAILY 8 Days #24 tab 08/18/20 Allergies Allergy/AdvReac Type Severity Reaction Status Date / Time No Known Allergies Allergy Verified 08/21/20 09:19 Review of Systems ROS Statement: Those systems with pertinent positive or pertinent negative responses have been documented in the HPI. ROS Other: All systems not noted in ROS Statement are negative. Past Medical History Past Medical History: No Reported History Additional Past Medical History / Comment(s): hx of kidney infection. History of Any Multi-Drug Resistant Organisms: None Reported Past Surgical History: Appendectomy Additional Past Surgical History / Comment(s): appy at 14 yo Past Anesthesia/Blood Transfusion Reactions: Previous Problems w/ Anesthesia Additional Past Anesthesia/Blood Transfusion Reaction / Comment(s): extreme blood pressure drop with last epidural Past Psychological History: No Psychological Hx Reported Smoking Status: Never smoker Past Alcohol Use History: None Reported Past Drug Use History: None Reported - Past Family History Father Family Medical History: No Reported History General Exam - General Exam Comments Initial Comments: GENERAL: Patient is well-developed and well-nourished. Patient is nontoxic and well- hydrated and is in mild distress. ENT: Neck is soft and supple. No significant lymphadenopathy is noted. Oropharynx is clear. Moist mucous membranes. Neck has full range of motion without eliciting any pain. EYES: The sclera were anicteric and conjunctiva were pink and moist. Extraocular movements were intact and pupils were equal round and reactive to light. Eyelids were unremarkable. PULMONARY: Unlabored respirations. Good breath sounds bilaterally. No audible rales rhonchi or wheezing was noted. CARDIOVASCULAR: There is a regular rate and rhythm without any murmurs gallops or rubs. ABDOMEN: Soft and nontender with normal bowel sounds. SKIN: Skin is clear with no lesions or rashes and otherwise unremarkable. NEUROLOGIC: Patient is alert and oriented x3. Cranial nerves II through XII are grossly intact. Motor and sensory are also intact. Normal speech, volume and content. Symmetrical smile. MUSCULOSKELETAL: Normal extremities with adequate strength and full range of motion. LYMPHATICS: No significant lymphadenopathy is noted PSYCHIATRIC: Normal psychiatric evaluation. Limitations: no limitations Course Vital Signs 08/21/20 08/21/20 08/21/20 07:52 08:54 09:32 Temperature 98.4 F 100.0 F H 101.0 F H Pulse Rate 98 93 77 Respiratory 20 18 18 Rate Blood Pressure 112/67 123/69 113/64 O2 Sat by Pulse 98 96 94 L Oximetry 08/21/20 10:09 Temperature 99.5 F Pulse Rate 68 Respiratory 18 Rate Blood Pressure 115/74 O2 Sat by Pulse 97 Oximetry Medical Decision Making - Medical Decision Making EKG shows normal sinus rhythm at 95 bpm DE interval 130 QRS is 78 QT interval 316 QTC is 397. EKG shows no ST segment elevation or depression. X-ray shows some atelectasis. I went back and reevaluate the patient hurt rate 69 bpm her pulse ox is 90% on room air. This point time the patient be discharged home to follow-up with primary medical care doctor tomorrow - Lab Data Result diagrams: 08/21/20 08:22 08/21/20 08:22 Lab Results 08/21/20 08/21/20 08/21/20 Range/Units 08:22 08:22 08:22 WBC 7.1 (3.8-10.6) k/uL RBC 5.13 (3.80-5.40) m/uL Hgb 13.8 (11.4-16.0) gm/dL Hct 43.0 (34.0-46.0) % MCV 83.9 (80.0-100.0) fL MCH 27.0 (25.0-35.0) pg MCHC 32.2 (31.0-37.0) g/dL RDW 14.2 (11.5-15.5) % Plt Count 161 (150-450) k/uL Neutrophils % 79 % Lymphocytes % 14 % Monocytes % 5 % Eosinophils % 0 % Basophils % 0 % Neutrophils # 5.7 (1.3-7.7) k/uL Lymphocytes # 1.0 (1.0-4.8) k/uL Monocytes # 0.4 (0-1.0) k/uL Eosinophils # 0.0 (0-0.7) k/uL Basophils # 0.0 (0-0.2) k/uL PT 10.1 (9.0-12.0) sec INR 1.0 (<1.2) APTT 22.2 (22.0-30.0) sec D-Dimer 0.58 (<0.60) mg/L FEU Sodium 141 (137-145) mmol/L Potassium 4.0 (3.5-5.1) mmol/L Chloride 105 (98-107) mmol/L Carbon Dioxide 27 (22-30) mmol/L Anion Gap 9 mmol/L BUN 10 (7-17) mg/dL Creatinine 0.85 (0.52-1.04) mg/dL Est GFR (CKD-EPI)AfAm >90 (>60 ml/min/1.73 sqM) Est GFR (CKD-EPI)NonAf >90 (>60 ml/min/1.73 sqM) Glucose 111 H (74-99) mg/dL Plasma Lactic Acid Aristides (0.7-2.0) mmol/L Calcium 9.5 (8.4-10.2) mg/dL Magnesium 2.3 (1.6-2.3) mg/dL Total Bilirubin 0.4 (0.2-1.3) mg/dL AST 25 (14-36) U/L ALT 20 (4-34) U/L Alkaline Phosphatase 87 (38-126) U/L Lactate Dehydrogenase 772 H (313-618) U/L C-Reactive Protein 45.0 H (<10.0) mg/L Total Protein 7.3 (6.3-8.2) g/dL Albumin 3.9 (3.5-5.0) g/dL Influenza Type A RNA (Not Detectd) Influenza Type B (PCR) (Not Detectd) 08/21/20 08/21/20 Range/Units 08:22 08:22 WBC (3.8-10.6) k/uL RBC (3.80-5.40) m/uL Hgb (11.4-16.0) gm/dL Hct (34.0-46.0) % MCV (80.0-100.0) fL MCH (25.0-35.0) pg MCHC (31.0-37.0) g/dL RDW (11.5-15.5) % Plt Count (150-450) k/uL Neutrophils % % Lymphocytes % % Monocytes % % Eosinophils % % Basophils % % Neutrophils # (1.3-7.7) k/uL Lymphocytes # (1.0-4.8) k/uL Monocytes # (0-1.0) k/uL Eosinophils # (0-0.7) k/uL Basophils # (0-0.2) k/uL PT (9.0-12.0) sec INR (<1.2) APTT (22.0-30.0) sec D-Dimer (<0.60) mg/L FEU Sodium (137-145) mmol/L Potassium (3.5-5.1) mmol/L Chloride (98-107) mmol/L Carbon Dioxide (22-30) mmol/L Anion Gap mmol/L BUN (7-17) mg/dL Creatinine (0.52-1.04) mg/dL Est GFR (CKD-EPI)AfAm (>60 ml/min/1.73 sqM) Est GFR (CKD-EPI)NonAf (>60 ml/min/1.73 sqM) Glucose (74-99) mg/dL Plasma Lactic Acid Aristides 2.8 H* (0.7-2.0) mmol/L Calcium (8.4-10.2) mg/dL Magnesium (1.6-2.3) mg/dL Total Bilirubin (0.2-1.3) mg/dL AST (14-36) U/L ALT (4-34) U/L Alkaline Phosphatase (38-126) U/L Lactate Dehydrogenase (313-618) U/L C-Reactive Protein (<10.0) mg/L Total Protein (6.3-8.2) g/dL Albumin (3.5-5.0) g/dL Influenza Type A RNA Not Detected (Not Detectd) Influenza Type B (PCR) Not Detected (Not Detectd) Disposition Clinical Impression: COVID-19 Disposition: HOME SELF-CARE Instructions (If sedation given, give patient instructions): Dyspnea (ED) Additional Instructions: Patient should return to emergency department if symptoms worsen there is increased difficulty breathing. Patient should take Tylenol for any fevers. Is patient prescribed a controlled substance at d/c from ED?: No Referrals: Charo Santacruz DO [Primary Care Provider] - 1-2 days Time of Disposition: 10:11
[2020-08-21 09:04] LABS: ALT 20 U/L (4-34); AST 25 U/L (14-36); African American GFR (CKD) >90 (>60 ml/min/1.73 sqM); Albumin 3.9 g/dL (3.5-5.0); Alkaline Phosphatase 87 U/L (38-126); Anion Gap 9 mmol/L; Blood Urea Nitrogen 10 mg/dL (7-17); Calcium 9.5 mg/dL (8.4-10.2); Carbon Dioxide 27 mmol/L (22-30); Chloride 105 mmol/L (98-107); Glucose 111 mg/dL (74-99); LDH 772 U/L (313-618); Magnesium 2.3 mg/dL (1.6-2.3); Non-African American GFR(CKD) >90 (>60 ml/min/1.73 sqM); Sodium 141 mmol/L (137-145); Total Bilirubin 0.4 mg/dL (0.2-1.3); Total Protein 7.3 g/dL (6.3-8.2)
[2020-08-21 09:06] LABS: Basophils % (A) 0 %; Eosinophils % (A) 0 %; HGB 13.8 gm/dL (11.4-16.0); Lymphocytes % (A) 14 %; MCHC 32.2 g/dL (31.0-37.0); MCV 83.9 fL (80.0-100.0); Mean Platelet Volume 10.2; Monocytes # (A) 0.4 k/uL (0-1.0); Monocytes % (A) 5 %; Neutrophils # (A) 5.7 k/uL (1.3-7.7); Neutrophils % (A) 79 %; Platelet Count 161 k/uL (150-450); RBC 5.13 m/uL (3.80-5.40); RDW 14.2 % (11.5-15.5); WBC 7.1 k/uL (3.8-10.6)
[2020-08-21] MEDS ORDERED: SODIUM CHLORIDE 0.9% 1,000 ML IV STA (09:17)
[2020-08-21 09:21] LABS: D-Dimer 0.58 mg/L FEU (<0.60); Partial Thromboplastin Time 22.2 sec (22.0-30.0); Prothrombin Time 10.1 sec (9.0-12.0)
--- NOTE | 2020-08-21 09:38 | XR ---
EXAMINATION TYPE: XR chest 2V DATE OF EXAM: 08/21/2020 COMPARISON: Prior chest x-ray August 18, 2020 and older x-rays. HISTORY: Cough and congestion, suspected covid-19 pneumonia. TECHNIQUE: Frontal and lateral views of the chest are obtained. FINDINGS: Lateral view is suboptimal due to patient's large body habitus. There are persistent low l angella volumes with patchy medial bibasilar opacities confirmed on both views. No pleural effusion or pn eumothorax seen bilaterally. The cardiac silhouette size remains within normal limits. The osseous structures are intact. IMPRESSION: Low lung volumes. Patchy bibasilar acute infiltrate and/or atelectasis. Not typical Covi d-19 pattern but not excluded.
[2020-08-21 10:29] VITALS: BP 115/72; PULSE 65; RESP 16; TEMP 98.9
[2020-08-21 16:18] LABS: Ferritin 52.2 ng/mL (10.0-291.0)
== END 2020-08-21 10:29 | disposition home or self-care (01) ==
LOC: EC 07:47
DX: U07.1 COVID-19 (principal); J98.11 Atelectasis
CPT/HCPCS: 36415; 93005; 85379; 80053; 82728; 83605; 83615; 83735; 85025; 85610; 85730; 86140; 87040; 87502; 84145; 71046; 99285; 96365; U0003; J0696

== ENCOUNTER → 2023-06-30 | Outpatient (CLI) | payer OTHER ==
--- NOTE | 2023-06-30 14:51 | CT ---
EXAMINATION TYPE: CT wrist RT wo con DATE OF EXAM: 06/30/2023 COMPARISON: None HISTORY: S63.501A UNSPECIFIED SPRAIN OF RIGHT WRIST Unenhanced CT of the right wrist with reconstruction imaging. TECHNIQUE: Unenhanced CT of the right wrist was performed with bone and soft tissue window settings s ubmitted in the axial coronal and sagittal planes. At a separate workstation [id number] TR imaging was obta ined. FINDINGS: There is a proximal scaphoid pole cyst measuring 9.2 mm. No pathologic fracture is identified. There is tiny curvilinear ossific density at the lateral aspect of the lunate seen best on coronal image 19 , sagittal image 22 and axial image 46. Small chip or avulsion fracture is not excluded. No additiona l osseous defects are seen. Joint spaces are well preserved as is the radiocarpal joint space. Small bone island of the distal radius at the radial styloid. No fluid collections are seen. No soft tissue mass is evident. IMPRESSION: 1. I cannot exclude a small chip or avulsion fracture arising from the lateral aspect of the lunate. 2. Scaphoid demonstrates a cyst at its proximal pole.
== END | disposition home or self-care (01) ==
LOC: RADCTMAIN 13:57
PROVIDERS: ATTEND Orthopaedic Surgery
DX: S63.501A Unspecified sprain of right wrist, initial encounter (principal); S42.001A Fracture of unspecified part of right clavicle, initial encounter for closed fracture; M85.431 Solitary bone cyst, right ulna and radius